=== PATIENT | male | born 1945 | race Caucasian/White ===

== ENCOUNTER 2017-08-08 09:01 | Day surgery (SDC) | payer MEDICARE ==
[~2017-08-08] VITALS: Ht 172.7 cm; Wt 71.2 kg
[2017-08-08] MEDS ORDERED: OMEPRAZOLE20 M1 PO (09:13)
[2017-08-08 11:06] VITALS: BP 106/57
== END 2017-08-08 11:24 | disposition home or self-care (01) ==
LOC: ENDO 09:01 → ORM 12:05
PROVIDERS: ATTEND Surgery
PROC: 0DB28ZX Excision of Middle Esophagus, Via Natural or Artificial Opening Endoscopic, Diagnostic (ICD-10-PCS; principal; 2017-08-08)
PROC: 0DB78ZX Excision of Stomach, Pylorus, Via Natural or Artificial Opening Endoscopic, Diagnostic (ICD-10-PCS; 2017-08-08)
DX: K29.50 Unspecified chronic gastritis without bleeding (principal); K21.0 Gastro-esophageal reflux disease with esophagitis; K44.9 Diaphragmatic hernia without obstruction or gangrene

== ENCOUNTER 2018-08-14 06:31 | Day surgery (SDC) | payer MEDICARE ==
[~2018-08-14] VITALS: Ht 174 cm; Wt 71.7 kg
[~2018-08-14 06:31] MED LIST: OMEPRAZOLE20 M1 PO
[2018-08-14 08:34] VITALS: BP 102/56
== END 2018-08-14 08:45 | disposition home or self-care (01) ==
LOC: ORM 06:31
PROVIDERS: ATTEND Surgery
PROC: 0DBE8ZX Excision of Large Intestine, Via Natural or Artificial Opening Endoscopic, Diagnostic (ICD-10-PCS; principal; 2018-08-14)
DX: R19.7 Diarrhea, unspecified (principal); K57.30 Diverticulosis of large intestine without perforation or abscess without bleeding; K64.4 Residual hemorrhoidal skin tags

== ENCOUNTER 2023-01-22 08:54 | Day surgery (SDC) | payer MEDICARE, OTHER ==
[~2023-01-22] VITALS: Ht 172.7 cm; Wt 72.6 kg
[2023-01-22 11:54] VITALS: BP 106/75
== END 2023-01-22 12:10 | disposition home or self-care (01) ==
LOC: ORM 08:54
PROVIDERS: ATTEND Internal Medicine Gastroenterology
PROC: 0DJD8ZZ Inspection of Lower Intestinal Tract, Via Natural or Artificial Opening Endoscopic (ICD-10-PCS; principal; 2023-01-22)
DX: Z12.11 Encounter for screening for malignant neoplasm of colon (principal); K57.30 Diverticulosis of large intestine without perforation or abscess without bleeding; K64.8 Other hemorrhoids; K59.09 Other constipation; N40.0 Benign prostatic hyperplasia without lower urinary tract symptoms; Z86.010 Personal history of colon polyps